=== PATIENT | male | born 1950 | race Caucasian/White ===

== ENCOUNTER 2019-07-22 11:22 | Emergency (ER) | payer MEDICARE, MEDICAID ==
[~2019-07-22] VITALS: Ht 185.4 cm; Wt 63.0 kg
[2019-07-22] MEDS ORDERED: IV NS 0.9% 1,000 ML BAG IV ONE ×2 (12:00→13:00)
[2019-07-22 12:11] LABS: BASOPHILS # (AUTO) 0.1 /CMM (0.0-0.2); BASOPHILS % (AUTO) 0.4 % (0.0-2.0); HEMATOCRIT 39 % (39-51); HEMOGLOBIN 13.4 g/dL (13.5-17.5); LYMPHOCYTES # (AUTO) 0.3 /CMM (0.8-4.8); LYMPHOCYTES % (AUTO) 2.5 % (20.0-44.0); MEAN CORPUSCULAR HGB CONC 34 g/dl (31.0-36.0); MEAN CORPUSCULAR VOLUME 93 fL (80-96); MONOCYTES # (AUTO) 0.5 /CMM (0.1-1.30); NEUTROPHILS % (AUTO) 93.1 % (43.0-81.0); PLATELET COUNT (AUTO) 140 /CMM (150-450); RED BLOOD CELL COUNT(AUTO) 4.24 MIL/uL (4.5-6.0)
[2019-07-22 12:35] LABS: ALANINE AMINOTRANSFERASE 22 U/L (12-78); ALBUMIN 2.8 g/dL (3.4-5.0); ALKALINE PHOSPHATASE 51 U/L (46-116); ASPARTATE AMINOTRANSFERASE 72 U/L (15-37); BILIRUBIN,DIRECT 0.5 mg/dL (0.0-0.2); BILIRUBIN,TOTAL 2.3 mg/dL (0.2-1.0); CARBON DIOXIDE 25 mmol/L (21-32); CHLORIDE 93 mmol/L (98-107); CREATININE 1.8 mg/dL (0.6-1.3); GLUCOSE 158 mg/dL (74-106); POTASSIUM 3.6 mmol/L (3.5-5.1); SODIUM SERUM 128 mmol/L (136-145); TOTAL PROTEIN, SERUM 6.9 g/dL (6.4-8.2); UREA NITROGEN, BLOOD 24 mg/dL (7-18)
[2019-07-22 12:40] LABS: ACETAMINOPHEN < 0 ug/ml (10-30); SALICYLATE < 2.8 mg/dL (2.8-20.0)
--- NOTE | 2019-07-22 12:46 | NUR ---
CODE STEMI ACTIVATED BY DR. MADRID NOTIFIED [facility] CRITICAL [facility] ACCESS TEAM
--- NOTE | 2019-07-22 12:48 | NUR ---
faxed facesheet and ekg to [phone]
[2019-07-22 12:51] LABS: ALCOHOL, BLOOD < 3 mg/dL (0-0)
[2019-07-22] MEDS ORDERED: PIPERACILLIN /TAZOBACTAM 3.375 G VIAL IV ONE (12:54)
[2019-07-22] MEDS ORDERED: PIPERACILLIN /TAZOBACTAM 3.375 G in IV D5W 50 ML IV ONE (13:00)
--- NOTE | 2019-07-22 13:09 | NUR ---
CALLED [facility] DR. LEE
[2019-07-22] MEDS ORDERED: HEPARIN INFUSION/D5W 500 ML IV ONE (13:11)
[2019-07-22] MEDS ORDERED: HEPARIN SODIUM, PORCINE 5000 UNITS/1 ML VIAL ONE (13:11)
[2019-07-22] MEDS ORDERED: HEPARIN INFUSION/D5W 500 ML IV PRN (13:30)
[2019-07-22] MEDS ORDERED: HEPARIN SODIUM, PORCINE 5000 UNITS/1 ML VIAL IV ONE (13:30)
[2019-07-22] MEDS ORDERED: LORAZEPAM INJ 2 MG/ML VIAL ONE (13:59)
[2019-07-22] MEDS ORDERED: LORAZEPAM INJ 2 MG/ML VIAL IV ONE (14:00)
[2019-07-22] MEDS ORDERED: ASPIRIN 81 MG TAB.CHEW ONE (14:01)
[2019-07-22] MEDS ORDERED: DILTIAZEM HCL 25 MG IV ONE (14:05)
--- NOTE | 2019-07-22 14:09 | NUR ---
REPORT GIVEN TO LINDA BRARTRUCK DOCK [employer] MOVER NURSE AT [facility]
[2019-07-22 14:11] VITALS: BP 196/113
[2019-07-22] MEDS ORDERED: DILTIAZEM HCL 25 MG IV IV ONE (14:30)
--- NOTE | 2019-07-22 14:30 | NUR ---
PT LEFT VIA [facility]SPORT TO [place] FOR STEMI, PT ON MONITOR, DENIES SOB, DENIES PAIN OR DISCOMFORT AT THIS TIME, REPORT GIVEN TO TRANSPORT STAFF.
== END 2019-07-22 14:53 | disposition short-term general hospital (02) ==
LOC: ER 11:33
DX: I21.3 ST elevation (STEMI) myocardial infarction of unspecified site (principal); A41.9 Sepsis, unspecified organism; N28.9 Disorder of kidney and ureter, unspecified; F14.10 Cocaine abuse, uncomplicated; J18.9 Pneumonia, unspecified organism; I48.92 Unspecified atrial flutter; I10 Essential (primary) hypertension; Z59.0 Homelessness; V19.9XXA Pedal cyclist (driver) (passenger) injured in unspecified traffic accident, initial encounter; Y93.89 Activity, other specified; Y92.89 Other specified places as the place of occurrence of the external cause; Y99.8 Other external cause status
CPT/HCPCS: 36415; 70450; 71045; 72125; 80048; 80076; 80307; 80329; 83605; 84484; 85025; 85730; 87040 ×2; 87804 ×2; 93005; 96361; 96365; 96368; 96375; 96376; 99291; G0480; J1644 ×2; J2060; J2543 ×2; J3490; J7060

== ENCOUNTER 2020-08-22 15:10 | Emergency (ER) | payer MEDICARE, MEDICAID ==
[~2020-08-22] VITALS: Ht 182.9 cm; Wt 81.2 kg
--- NOTE | 2020-08-22 15:15 | NUR ---
AAOX3, BIBRA 61 C/O LOWER BACK PAIN S/P FALL X 2 DAYS AGO. RR IS EVEN AND UNLABORED WITH NAD NOTED. SKIN IS WARM AND NON DIAPHORETIC. AWAITING MD FOR EVAL.
[2020-08-22] MEDS ORDERED: KETOROLAC TROMETHAMINE INJ 60 MG/2 ML VIAL IM ONE (16:30)
[2020-08-22] MEDS ORDERED: CYCLOBENZAPRINE 10 MG TABLET PO ONE (16:30)
[2020-08-22] MEDS ORDERED: CYCLOBENZAPRINE 10 MG TABLET ONE (16:44)
[2020-08-22] MEDS ORDERED: KETOROLAC TROMETHAMINE INJ 30 MG/ML VIAL ONE (16:44)
--- NOTE | 2020-08-22 16:50 | NUR ---
PATIENT REFUSED TO TAKE TORADOL. ER MADE AWARE.
--- NOTE | 2020-08-22 16:55 | NUR ---
PATIENT REFUSED CT, DR HINDS MADE AWARE.
[2020-08-22] MEDS ORDERED: ACETAMINOPHEN ES 500 MG TABLET ONE (16:56)
[2020-08-22] MEDS ORDERED: IBUPROFEN 400 MG TABLET ONE (16:56)
--- NOTE | 2020-08-22 17:10 | NUR ---
PROVIDED SANDWICHES AND DRINKS.
[2020-08-22] MEDS ORDERED: IBUPROFEN 400 MG TABLET PO ONE (17:30)
[2020-08-22] MEDS ORDERED: ACETAMINOPHEN ES 500 MG TABLET PO ONE (17:30)
[2020-08-22 17:40] VITALS: BP 132/84
--- NOTE | 2020-08-22 17:40 | NUR ---
Patient discharged to home in stable condition. Written and verbal after care instructions given. Patient verbalizes understanding of instruction.
== END 2020-08-22 17:41 | disposition home or self-care (01) ==
LOC: ER 15:14
DX: M54.5 Low back pain (principal); I25.10 Atherosclerotic heart disease of native coronary artery without angina pectoris; I10 Essential (primary) hypertension; J45.909 Unspecified asthma, uncomplicated; Z59.0 Homelessness
CPT/HCPCS: J1885